=== PATIENT | female | born 1960 | race Caucasian/White ===

== ENCOUNTER 2017-04-04 14:41 | Emergency (ER) | payer OTHER, MEDICAID ==
[~2017-04-04] VITALS: Ht 157.5 cm; Wt 59.0 kg
[2017-04-04 18:05] VITALS: BP 125/76
== END 2017-04-04 18:07 | disposition left against medical advice (07) ==
LOC: ER 15:14
DX: F10.129 Alcohol abuse with intoxication, unspecified (principal); Y90.9 Presence of alcohol in blood, level not specified; G92 Toxic encephalopathy; R03.0 Elevated blood-pressure reading, without diagnosis of hypertension
CPT/HCPCS: 99283

== ENCOUNTER 2017-12-18 11:59 | Emergency (ER) | payer OTHER, MEDICAID ==
[~2017-12-18] VITALS: Ht 154.9 cm; Wt 79.0 kg
[2017-12-18 13:37] VITALS: BP 151/105
[2017-12-18] MEDS ORDERED: BACITRACIN ZINC OINT UDPKT TOP ONE (21:15)
== END 2017-12-18 21:27 | disposition home or self-care (01) ==
LOC: ER 11:59
DX: T21.22XA Burn of second degree of abdominal wall, initial encounter (principal); T31.0 Burns involving less than 10% of body surface; X12.XXXA Contact with other hot fluids, initial encounter; Y93.89 Activity, other specified; Y92.89 Other specified places as the place of occurrence of the external cause; Y99.8 Other external cause status
CPT/HCPCS: 16000; 99284